=== PATIENT | female | born 2000 | race African-American/Black ===

== ENCOUNTER 2021-07-28 23:25 | Emergency (ER) | payer OTHER ==
[2021-07-28 23:32] VITALS: BP 108/78; PULSE 83; TEMP 98.3; BMI 23.0
[2021-07-29] MEDS ORDERED: ACETAMINOPHEN 500 MG TABLET (FP) PO ONE (01:42)
[2021-07-29] MEDS ORDERED: ACETAMINOPHEN 325 MG TABLET (FP) ONE (02:15)
== END 2021-07-29 04:08 | disposition home or self-care (01) ==
LOC: JER 23:25
DX: S69.91XA Unspecified injury of right wrist, hand and finger(s), initial encounter (principal); Y04.0XXA Assault by unarmed brawl or fight, initial encounter
CPT/HCPCS: 73110-TC-RT-FY; 73130-TC-RT-FY; 99283-25

== ENCOUNTER 2021-11-05 02:49 | Emergency (ER) | payer OTHER ==
[2021-11-05 08:41] VITALS: BMI 23.8
[2021-11-05 10:14] VITALS: BP 104/63; PULSE 87; TEMP 97.8
[2021-11-05 11:57] LABS: ALBUMIN 3.3 g/dl (3.4-5.0); ALK PHOS 45 U/L (45-117); BILIRUBIN,TOTAL 0.2 mg/dL (0.2-1); BLOOD UREA NITROGEN 11.5 mg/dL (7-18); CALCIUM 8.7 mg/dL (8.5-10.1); CHLORIDE 109 mmol/L (98-107); CO2 23 mmol/L (21-32); CREATININE 0.6 mg/dL (0.55-1.3); GLUCOSE,RANDOM 94 mg/dL (74-106); SGOT/AST 35 U/L (15-37); SGPT/ALT 45 U/L (13-61); SODIUM 139 mmol/L (136-145); TOT PROT 6.4 g/dl (6.4-8.2)
[2021-11-05 13:28] LABS: ACTIVATED PTT 24.3 SECONDS (25.2-36.5); INR 1.03 (0.83-1.09); PROTHROMBIN TIME (PATIENT) 11.8 SEC (9.7-13.0)
[2021-11-05 13:29] LABS: BASO % 0.8 % (0-2.0); EOS % 3.7 % (0-4.5); HEMATOCRIT 29.3 % (32.4-45.2); LYMPH % 30.5 % (8-40); MCH 31.1 pg (25.7-33.7); MCHC 34.2 g/dl (32.0-36.0); MEAN CELL VOLUME 90.9 fl (80-96); MEAN PLT VOLUME 7.6 fl (7.5-11.1); MONO % 6.5 % (3.8-10.2); NEUT % 58.5 % (42.8-82.8); PLATELET COUNT 209 10^3/uL (134-434); RBC 3.23 M/mm3 (3.60-5.2); WHITE BLOOD COUNT 9.4 K/mm3 (4.0-10.0)
== END 2021-11-05 10:43 | disposition home or self-care (01) ==
LOC: JER 02:49
DX: O04.80 (Induced) termination of pregnancy with unspecified complications (principal); N93.9 Abnormal uterine and vaginal bleeding, unspecified
CPT/HCPCS: 36415; 76830-TC; 80053; 84702; 85025; 85610; 85730; 86850; 86900; 86901; 99284-25